=== PATIENT | male | born 1990 | race Asian ===

== ENCOUNTER 2023-07-16 15:48 | Emergency (ER) | payer SELFPAY ==
[2023-07-16] MEDS ORDERED: LIDOCAINE 1% MPF 30 ML VIAL ONE (16:27)
--- NOTE | 2023-07-16 16:58 | ER ---
Nurse's Notes [facility] Name: Radha Rod Age: 33 yrs Sex: Male : 1990 Arrival Date: 07/16/2023 Time: 15:48 Bed Treatment Private MD: Diagnosis: Laceration without foreign body of left hand Presentation: 07/16 16:09 Chief complaint: Patient states: was welding a gutter and cut his index finger on left cm10 hand. bleeding controlled at this time. Coronavirus screen: Vaccine status: Patient reports receiving the 2nd dose of the covid vaccine. Client denies travel out of the [place] in the last 14 days. Ebola Screen: Patient denies travel to an Ebola-affected area in the 21 days before illness onset. No symptoms or risks identified at this time. Complicating Factors: There are no complicating factors for this patient. Initial Sepsis Screen: Does the patient meet any 2 criteria? No. Patient's initial sepsis screen is negative. Does the patient have a suspected source of infection? No. Patient's initial sepsis screen is negative. Risk Assessment: Do you want to hurt yourself or someone else? Patient reports no desire to harm self or others. Onset of symptoms was July 16, 2023. 16:09 Method Of Arrival: Ambulatory cm10 16:09 Acuity: WILLIAM 4 cm10 Historical: - Allergies: 16:08 No Known Allergies; cm10 - Home Meds: 16:08 None [Active]; cm10 - PMHx: 16:08 None; cm10 - PSHx: 16:08 None; cm10 - Immunization history:: Adult Immunizations unknown, Last tetanus immunization: < 5 years ago. - Social history:: Smoking status: Patient denies any tobacco usage or history of. Screenin:11 [facility] ED Fall Risk Assessment (Adult) History of falling in the last 3 months, ph including since admission No falls in past 3 months (0 pts) Score/Fall Risk Level 0 - 2 = Low Risk Oriented to surroundings, Maintained a safe environment, Provided non-skid footwear, Hourly rounding (assess needs \T\ fall precautionary measures) done. Abuse screen: Denies threats or abuse. Denies injuries from another. Nutritional screening: No deficits noted. Tuberculosis screening: No symptoms or risk factors identified. Assessment: 17:10 General: Appears in no apparent distress. Behavior is calm, cooperative. Pain: ph Complains of pain in dorsum of left hand. Neuro: Level of Consciousness is awake, alert, obeys commands, Oriented to person, place, time, situation. Respiratory: Airway is patent Respiratory effort is even, unlabored. Musculoskeletal: Circulation, motion, and sensation intact. Range of motion: intact in all extremities. Injury Description: Laceration sustained to dorsum of left hand is 2.6 to 7.5 cm long, not bleeding, was sustained 30-60 minutes ago. Vital Signs: 16:09 BP 123 / 86; Pulse 79; Resp 16; Temp 98.5; Pulse Ox 98% ; Weight 86.18 kg; Height 5 ft. cm10 11 in. ; Pain 1/10; 16:09 Body Mass Index 26.50 (86.18 kg, 180.34 cm) cm10 16:09 Pain Scale: Adult cm10 ED Course: 15:52 Patient arrived in ED. ts1 15:55 [facility] Solis [facility]C [facility] kb 15:55 Luis Emerson MD is Attending Physician. kb 16:09 Arm band placed on Patient placed in an exam room, on a stretcher. cm10 16:10 Triage completed. cm10 16:30 Nicolle Kaminski, RN is Primary Nurse. ph 17:11 No provider procedures requiring assistance completed. Patient did not have IV access ph during this emergency room visit. 17:12 Patient has correct armband on for positive identification. Bed in low position. Call ph light in reach. 17:12 Assist provider with laceration repair on dorsum of left hand that was between 2.6 to ph 7.5 cm using sutures. Set up tray. Performed by Shanna LY Patient tolerated well. Administered Medications: 17:01 Drug: Lidocaine Infiltration (1 %) 1 vials 5 ml Infiltration once; to bedside Volume: 5 ph ml; Route: Infiltration; 17:01 Follow up: Response: No adverse reaction ph Medication: 17:12 VIS not applicable for this client. ph Outcome: 16:57 Discharge ordered by . kb 17:11 Discharged to home ambulatory, ph 17:11 Condition: good 17:11 Discharge instructions given to patient, Instructed on discharge instructions, follow up and referral plans. wound care, Demonstrated understanding of instructions, follow-up care, wound care, 17:13 Patient left the ED. ph Signatures: Shanna Solis, MALACHI PIMENTEL-Nicolle Bai RN RN ph Sharon Hoff PAS PAS ts1 Deonna Gould RN RN cm10
--- NOTE | 2023-07-16 16:58 | EDPHYS ---
Physician Documentation [facility] Name: Radha Rod Age: 33 yrs Sex: Male : 1990 Arrival Date: 07/16/2023 Time: 15:48 Bed Treatment Private MD: ED Physician Luis Emerson HPI: 07/16 16:11 This 33 yrs old Male presents to ER via Ambulatory with complaints of Laceration kb To Hand. 16:11 The patient has a laceration related to: working, from a sharp metal object, and there kb are no complicating factors. The injury was accidental. The laceration(s) is(are) located on the dorsum of left hand. Onset: The symptoms/episode began/occurred just prior to arrival. Associated signs and symptoms: The patient has no apparent associated signs or symptoms. The patient has not experienced similar symptoms in the past. The patient has not recently seen a physician. Pt reports he was welding a gutter and the metal cut his hand. Historical: - Allergies: 16:08 No Known Allergies; cm10 - Home Meds: 16:08 None [Active]; cm10 - PMHx: 16:08 None; cm10 - PSHx: 16:08 None; cm10 - Immunization history:: Adult Immunizations unknown, Last tetanus immunization: < 5 years ago. - Social history:: Smoking status: Patient denies any tobacco usage or history of. ROS: 16:11 Constitutional: Negative for fever, chills, and weight loss, kb 16:11 Skin: Positive for laceration(s), of the dorsum of left hand, 16:11 All other systems are negative, Exam: 16:11 Constitutional: This is a well developed, well nourished patient who is awake, alert, kb and in no acute distress. Head/Face: Normocephalic, atraumatic. ENT: Moist Mucous membranes Respiratory: Respirations even and unlabored. No increased work of breathing. Talking in full sentences MS/ Extremity: Pulses equal, no cyanosis. Neurovascular intact. Full, normal range of motion. Neuro: Awake and alert, GCS 15, oriented to person, place, time, and situation. Moves all extremities. Normal gait. 16:11 Skin: injury, laceration(s), the wound is approximately 4 cm(s), of the dorsum of left hand, that can be described as clean, contaminated, no foreign body, linear, without bleeding, Vital Signs: 16:09 BP 123 / 86; Pulse 79; Resp 16; Temp 98.5; Pulse Ox 98% ; Weight 86.18 kg; Height 5 ft. cm10 11 in. ; Pain 1/10; 16:09 Body Mass Index 26.50 (86.18 kg, 180.34 cm) cm10 16:09 Pain Scale: Adult cm10 Laceration: 16:55 Wound Repair of 4cm ( 1.6in ) subcutaneous laceration to dorsum of left hand. Linear kb shaped.. Distal neuro/vascular/tendon intact. Anesthesia: Local anesthetic administered with 2.5 mls of 1% lidocaine. Wound prep: Extensive cleansing, Wound irrigation. Skin closed with 5 4-0 Prolene using simple sutures and sterile technique. Patient tolerated well. MDM: 15:55 Patient medically screened. kb 16:13 Differential diagnosis: superficial laceration, tendon injury, vascular injury. Data kb reviewed: vital signs, nurses notes. 16:56 I considered the following discharge prescriptions or medication management in the emergency department I discussed and recommended Over The Counter medications, Antibiotics: At this time antibiotics are not recommended. Test considered but Not performed: X-ray: hand x-ray considered, but pt has full rom, depth of laceration visualized. Counseling: I had a detailed discussion with the patient and/or guardian regarding the historical points, exam findings, and any diagnostic results supporting the discharge/admit diagnosis, the need for outpatient follow up, a family practitioner, to return to the emergency department if symptoms worsen or persist or if there are any questions or concerns that arise at home. 07/16 16:08 Order name: Dressing - Wound; Complete Time: 17:01 kb 07/16 16:08 Order name: Gloves, Sterile; Complete Time: 16:15 kb 07/16 16:08 Order name: Prolene, Sutures; Complete Time: 16:15 kb 07/16 16:08 Order name: Setup Suture Tray; Complete Time: 16:15 kb Administered Medications: 17:01 Drug: Lidocaine Infiltration (1 %) 1 vials 5 ml Infiltration once; to bedside Volume: 5 ph ml; Route: Infiltration; 17:01 Follow up: Response: No adverse reaction ph Disposition Summary: 07/16/23 16:57 Discharge Ordered Condition: Stable kb Diagnosis - Laceration without foreign body of left hand kb Followup: kb - With: Emergency Department - When: As needed - Reason: Worsening of condition Followup: kb - With: Private Physician - When: 2 - 3 days - Reason: Recheck today's complaints, Continuance of care, Re-evaluation by your physician Discharge Instructions: - Discharge Summary Sheet kb - Laceration Care, Adult, [id number] kb Forms: - Medication Reconciliation Form kb - Thank You Letter kb - Antibiotic Education kb - Prescription Opioid Use kb - Patient Portal Instructions kb - Leadership Thank You Letter kb Signatures: Shanna Solis, MARGARITO-C MARGARITO-Nicolle Bai, RN RN Deonna Gould RN RN cm10
[2023-07-17 16:00] VITALS: BP 123/86; TEMP 98.5; O2SAT 98
== END 2023-07-16 17:13 | disposition home or self-care (01) ==
LOC: ER 15:48
PROC: 0HQGXZZ Repair Left Hand Skin, External Approach (ICD-10-PCS; principal; 2023-07-16)
DX: S61.412A Laceration without foreign body of left hand, initial encounter (principal)
CPT/HCPCS: J2001